=== PATIENT | male | born 1980 | race Two or more races ===

== ENCOUNTER 2018-07-04 13:45 | Outpatient (CLI) | payer OTHER | END 2018-07-04 13:50 | disposition home or self-care (01) | LOC: RAD 13:45 | DX: R76.11 Nonspecific reaction to tuberculin skin test without active tuberculosis (principal) ==

== ENCOUNTER 2018-09-18 10:27 | Outpatient (CLI) | payer OTHER | END 2018-09-18 11:43 | disposition home or self-care (01) | LOC: OFIC 805 10:27 | DX: J31.0 Chronic rhinitis (principal); H61.22 Impacted cerumen, left ear; J35.1 Hypertrophy of tonsils ==

== ENCOUNTER 2019-12-02 07:58 | Outpatient (CLI) | payer OTHER | END 2019-12-02 14:48 | disposition home or self-care (01) | LOC: OFIC 805 07:58 | PROVIDERS: ATTEND Otolaryngology | DX: H68.103 Unspecified obstruction of Eustachian tube, bilateral (principal); H61.22 Impacted cerumen, left ear; H92.03 Otalgia, bilateral ==

== ENCOUNTER 2020-01-09 08:00 | Outpatient (CLI) | payer OTHER | END 2020-01-09 16:12 | disposition home or self-care (01) | LOC: PPH VACUNA 08:00 | DX: Z23 Encounter for immunization (principal) ==

== ENCOUNTER → 2021-01-18 | Outpatient (CLI) | payer OTHER | END | disposition home or self-care (01) | LOC: PPH VACUNA 08:00 | PROVIDERS: ATTEND Emergency Medicine Pediatric Emergency Medicine | DX: Z23 Encounter for immunization (principal) ==

== ENCOUNTER 2021-02-14 09:55 | Outpatient (CLI) | payer OTHER | END 2021-02-14 10:00 | disposition home or self-care (01) | LOC: PPH VACUNA 09:55 | PROVIDERS: ATTEND Emergency Medicine Pediatric Emergency Medicine | DX: Z23 Encounter for immunization (principal) ==

== ENCOUNTER 2022-04-05 15:45 | Outpatient (CLI) | payer OTHER | END 2022-04-05 15:55 | disposition home or self-care (01) | LOC: PPH VACUNA 15:45 | PROVIDERS: ATTEND Emergency Medicine Pediatric Emergency Medicine | DX: Z23 Encounter for immunization (principal) ==

== ENCOUNTER 2022-08-10 16:33 | Outpatient (CLI) | payer OTHER | END 2022-08-10 23:00 | disposition home or self-care (01) | LOC: LAB 16:33 | PROVIDERS: ATTEND Radiology Diagnostic Radiology | DX: R59.9 Enlarged lymph nodes, unspecified (principal); R22.1 Localized swelling, mass and lump, neck ==

== ENCOUNTER → 2022-08-11 | Outpatient (CLI) | payer OTHER | END | disposition home or self-care (01) | LOC: TOM 07:07 | PROVIDERS: ATTEND Pathology Anatomic Pathology & Clinical Pathology | DX: E04.2 Nontoxic multinodular goiter (principal); R59.9 Enlarged lymph nodes, unspecified; R22.1 Localized swelling, mass and lump, neck ==